=== PATIENT | female | born 1950 | race Caucasian/White ===

== ENCOUNTER 2022-03-31 11:28 | Inpatient (IN) | payer MEDICARE, OTHER ==
[~2022-03-31] VITALS: Ht 165.1 cm; Wt 95.3 kg
[2022-03-31] MEDS ORDERED: ACETAMINOPHEN 325 MG TABLET PO ONE ×2 (11:45→17:45)
[2022-03-31] MEDS ORDERED: IV NORMAL SALINE 1000 ML BAG IV ONE (11:45)
[2022-03-31] MEDS ORDERED: ACYCLOVIR 500 MG VIAL IV ONE (12:04)
[2022-03-31] MEDS ORDERED: ACETAMINOPHEN 325 MG TABLET ONE (12:05)
[2022-03-31 12:18] LABS: HEMATOCRIT 33.8 % (31.2-41.9); MEAN CORPUSCULAR HEMOGLOBIN 30.4 uug (24.7-32.8); MEAN CORPUSCULAR VOLUME 89.9 fL (75.5-95.3); PLATELET COUNT (AUTO) 109 K/uL (179-408)
--- NOTE | 2022-03-31 12:19 | NUR ---
Pt was taken by Giancarlo diane CT.
[2022-03-31] MEDS ORDERED: ANAS1TAB50 PO (12:20)
[2022-03-31] MEDS ORDERED: MAGN400T26 PO (12:20)
[2022-03-31] MEDS ORDERED: ATEN50TA PO (12:20)
[2022-03-31] MEDS ORDERED: ALBU1.25 IH (12:20)
[2022-03-31] MEDS ORDERED: ALPR0.5T8 PO (12:20)
[2022-03-31] MEDS ORDERED: LIDO5JEL9 TP (12:20)
[2022-03-31] MEDS ORDERED: CLOT15CR5 TP (12:20)
[2022-03-31] MEDS ORDERED: ALBU8HFA4 PO (12:20)
[2022-03-31] MEDS ORDERED: ASPI81TA31 PO (12:20)
[2022-03-31] MEDS ORDERED: LISI20TA30 PO (12:20)
[2022-03-31] MEDS ORDERED: CLON0.1T PO (12:20)
[2022-03-31] MEDS ORDERED: CA C1TAB71 PO (12:20)
[2022-03-31] MEDS ORDERED: ZOLP5TAB2 PO (12:20)
[2022-03-31] MEDS ORDERED: GABA-532 PO (12:20)
[2022-03-31] MEDS ORDERED: MECL-159 PO (12:20)
[2022-03-31] MEDS ORDERED: IBUP-1955 PO (12:20)
[2022-03-31] MEDS ORDERED: [UNRECOGNIZED DRUG - OTHER] PO (12:20)
[2022-03-31] MEDS ORDERED: AMLO5TAB4 PO (12:20)
[2022-03-31] MEDS ORDERED: CICLOPIROX TP (12:20)
[2022-03-31] MEDS ORDERED: ROSU40TA PO (12:20)
[2022-03-31 12:26] LABS: CARBON DIOXIDE 24 mmol/L (21-32); CHLORIDE 97 mmol/L (98-107); CREATININE 1.1 mg/dL (0.6-1.3); GLUCOSE 199 mg/dL (74-106); POTASSIUM 3.8 mmol/L (3.5-5.1); UREA NITROGEN, BLOOD 25 mg/dL (7-18)
[2022-03-31 12:35] LABS: ALANINE AMINOTRANSFERASE 17 U/L (14-59); ALKALINE PHOSPHATASE 58 U/L (50-136); ASPARTATE AMINOTRANSFERASE 16 U/L (15-37); BILIRUBIN,DIRECT 0.1 mg/dL (0.0-0.2); BILIRUBIN,TOTAL 0.6 mg/dL (0.2-1.0); TOTAL PROTEIN, SERUM 6.8 g/dL (6.4-8.2)
[2022-03-31 12:57] LABS: *BILIRUBIN,URIN 1+ (NEGATIVE); *KETONES,URINE 2+ (NEGATIVE); *UROBILINOGEN,URINE 0.2 E.U./dl (NORMAL); LEUKOCYTE ESTERASE ,URINE NEGATIVE (NEGATIVE); NITRITE, URINE NEGATIVE (NEGATIVE); PH,URINE 5.5 (5.0-8.0); UGLUCOSE NEGATIVE (NEGATIVE)
[2022-03-31 13:11] LABS: *BLOOD, URINE TRACE (NEGATIVE); *COLOR,URINE DARK YELLOW (YELLOW)
[2022-03-31 13:17] LABS: *CLARITY,URINE SLIGHTLY HAZY (CLEAR)
[2022-03-31 13:25] LABS: BACTERIA,URINE FEW /HPF (NONE SEEN); SQUAMOUS EPITHELIAL CELL,UR FEW /HPF (NONE SEEN); WBC,URINE 0-3 /HPF (0-3)
[2022-03-31] MEDS ORDERED: ACYCLOVIR IV 500 MG in IV DEXTROSE 5% 100 ML IV ONE (14:00)
--- NOTE | 2022-03-31 15:30 | NUR ---
Tried to call for report. CN on break. No assignment yet for new admits.
--- NOTE | 2022-03-31 17:37 | NUR ---
report given to REG Gaffney
[2022-03-31 18:40] VITALS: BP 108/80
--- NOTE | 2022-03-31 18:40 | NUR ---
RECEIVED FOR ADMISSION 72 YEARS FEMALE FROM ED BY JEMIMA TO ROOM 308 ASSISTED INTO BED FIXED AND MADE COMFORTABLE PATIENT IS ALERT AND VERBALLY RESPONSIVE ON ROOM AIR WITH NO SHORTNESS OF BREATH AT THIS TIME PATIENT PLACED ON CONTACT ISOLATION DUE TO SHINGLES ORIENTED TO ROOM AND FACILITY PROTOCOL FAMILY HERE AT THE BEDSIDE CALL LIGHT AND PERSONAL BELONGINGS ARE WITHIN EASY REACH WILL ENDORSE THE ADMISSION OF THIS PATIENT TO ONCOMING SHIFT.
[2022-03-31] MEDS ORDERED: ONDANSETRON 4 MG/2 ML VIAL IV PRN (19:00)
[2022-03-31] MEDS ORDERED: CLONIDINE HCL 0.1 MG TABLET PO PRN (19:00)
[2022-03-31] MEDS ORDERED: ALPRAZOLAM 0.5 MG TABLET PO PRN (19:00)
[2022-03-31] MEDS ORDERED: MAGNESIUM HYDROXIDE 30 ML LIQUID UDC PO PRN (19:00)
[2022-03-31] MEDS ORDERED: MORPHINE SULFATE 2 MG/1 ML DISP.SYRIN IV PRN (19:00)
[2022-03-31 20:00] VITALS: BP 146/83
[2022-03-31] MEDS ORDERED: ENOXAPARIN SODIUM 40 MG/0.4 ML DISP.SYRIN SQ SCH (20:00)
--- NOTE | 2022-03-31 20:00 | NUR ---
PHOTO TAKEN TO PATIENT BODY AREAS WITH MULTIPLE SKIN RASH ( REDNESS ).FACE,LEFT LOWER POSTERIOR THIGH ,LEFT LOWER BUTTOCKS AREA,CHEST AND ABDOMEN AREA ,RIGHT AND LEFT GROIN AND PERINEAL AREA . SEE PHOTO , WOUND CARE CONSULTED .
[2022-03-31] MEDS ORDERED: ZOLPIDEM 5 MG TABLET PO PRN (21:00)
[2022-03-31] MEDS ORDERED: METOPROLOL TARTRATE 25 MG TABLET PO SCH (21:00)
[2022-03-31] MEDS: CEFAZOLIN 2 G in IV DEXTROSE 5% 100 ML IV SCH (21:03)
[2022-03-31] MEDS: GABAPENTIN 100 MG CAPSULE PO SCH (21:04)
[2022-03-31] MEDS: ENOXAPARIN SODIUM 40 MG/0.4 ML DISP.SYRIN SQ SCH (21:06)
[2022-04-01] VITALS: BP 147/85
[2022-04-01 04:00] VITALS: BP 181/86
[2022-04-01] MEDS: CEFAZOLIN 2 G in IV DEXTROSE 5% 100 ML IV SCH ×3 (04:30→20:22)
[2022-04-01] MEDS: ACETAMINOPHEN 325 MG TABLET PO PRN ×2 (05:33→17:18)
--- NOTE | 2022-04-01 05:47 | NUR ---
given prn tyelnol for fever temp 103 .1 axillary and catapres for bp of 181/86. placed cold compress to bilateral armpit and groin area .
[2022-04-01] MEDS: PANTOPRAZOLE SODIUM 40 MG TABLET.DR PO SCH (06:17)
[2022-04-01 07:19] LABS: HEMATOCRIT 31.8 % (31.2-41.9); MEAN CORPUSCULAR HEMOGLOBIN 30.6 uug (24.7-32.8); MEAN CORPUSCULAR VOLUME 88.5 fL (75.5-95.3); PLATELET COUNT (AUTO) 111 K/uL (179-408)
[2022-04-01 07:32] LABS: THYROID STIMULATING HORMONE 0.139 mIU/mL (0.358-3.740)
[2022-04-01 07:38] LABS: BILIRUBIN,TOTAL 0.3 mg/dL (0.2-1.0); CREATININE 0.9 mg/dL (0.6-1.3); PHOSPHOROUS 2.1 mg/dL (2.5-4.9); POTASSIUM 3.5 mmol/L (3.5-5.1); TOTAL PROTEIN, SERUM 5.8 g/dL (6.4-8.2)
[2022-04-01 07:54] LABS: MAGNESIUM 1.8 mg/dL (1.8-2.4)
[2022-04-01] MEDS ORDERED: AMLODIPINE 5 MG TABLET PO SCH (09:00)
[2022-04-01] MEDS ORDERED: SWABABLE VALVE TRANSFER SET EA MC ONE (09:39)
[2022-04-01] MEDS ORDERED: IV NORMAL SALINE 0 ML IV ONE (09:39)
[2022-04-01] MEDS ORDERED: IOHEXOL 350 100 ML INFUS..BTL ONE (09:40)
[2022-04-01] MEDS: GABAPENTIN 100 MG CAPSULE PO SCH ×2 (09:44→20:35)
[2022-04-01] MEDS: ANASTROZOLE 1 MG TABLET PO SCH (09:44)
[2022-04-01] MEDS: ASPIRIN 81 MG TAB.CHEW PO SCH (09:44)
[2022-04-01] MEDS ORDERED: POTASSIUM CHLORIDE 20 MEQ TAB.PRT.SR PO ONE (10:00)
[2022-04-01] MEDS ORDERED: NEUTRA PHOS PACKET PO ONE ×2 (10:00→16:00)
--- NOTE | 2022-04-01 10:00 | NUR ---
Per Dr. Marshall, hold transfer to [place], for airborne precautions, until he assesses patient. Family is aware, partial airborne precautions followed as there is no negative pressure room in this unit.
[2022-04-01] MEDS: METOPROLOL TARTRATE 50 MG TABLET PO SCH ×2 (10:07→20:35)
[2022-04-01 11:44] VITALS: BP 136/55
[2022-04-01] MEDS ORDERED: LIDO700A30 TP (15:01)
[2022-04-01] MEDS ORDERED: OMEG1CAP74 PO (15:01)
[2022-04-01] MEDS: ACYCLOVIR IV 1,000 MG in IV DEXTROSE 5% 250 ML IV SCH ×2 (15:13→23:41)
[2022-04-01 15:46] VITALS: BP 159/63
--- NOTE | 2022-04-01 16:00 | NUR ---
Spoke to Dr. Marshall who confirms patient will need to be transferred to [facility] due to disseminated zoster which need airborne precautions. Family made aware and refuses to be transferred to [facility]. Questions answered to family and also referred to speak to MD for further questions. Family is requesting to be transferred to [facility] so that patient oncologisty, Dr. Clemente Martinez, can see her. Nursing evaporator supervisor and Doctor made aware. MD also aware of patient fatigue and temp of 103.0. Per MD he will call the family.
--- NOTE | 2022-04-01 18:50 | NUR ---
Dr. Cisneros spoke to family and Dr. Meg Mendoza in regards to needs for transfer and other questions. Nursing supervisor building maintenance working on transfer.
--- NOTE | 2022-04-01 19:30 | NUR ---
rounds made patient in bed resting .no s/s of pain . patient is verbal and able to answer yes or no to simple questions . contact and droplet isolation observed .
[2022-04-01 20:00] VITALS: BP 145/70
--- NOTE | 2022-04-01 20:35 | NUR ---
due po medication given with cranberry juice .patient requested extra blanket provided patient denies pain . no sob breathing even and unlabored .
[2022-04-01] MEDS: ENOXAPARIN SODIUM 40 MG/0.4 ML DISP.SYRIN SQ SCH (20:37)
--- NOTE | 2022-04-01 22:14 | NUR ---
found right ac heplock iv leaking discontinued placed new heplock to the left ac no .20 done aseptically . attempted x1.
[2022-04-02] MEDS: ACETAMINOPHEN 325 MG TABLET PO PRN ×2 (00:14→12:45)
[2022-04-02 00:29] VITALS: BP 132/53
[2022-04-02 04:30] VITALS: BP 108/58
[2022-04-02] MEDS: CEFAZOLIN 2 G in IV DEXTROSE 5% 100 ML IV SCH ×2 (04:31→12:35)
[2022-04-02] MEDS: PANTOPRAZOLE SODIUM 40 MG TABLET.DR PO SCH (06:15)
[2022-04-02] MEDS: ACYCLOVIR IV 1,000 MG in IV DEXTROSE 5% 250 ML IV SCH (06:15)
[2022-04-02 06:54] LABS: HEMATOCRIT 30.4 % (31.2-41.9); MEAN CORPUSCULAR HEMOGLOBIN 30.2 uug (24.7-32.8); MEAN CORPUSCULAR VOLUME 87.4 fL (75.5-95.3); PLATELET COUNT (AUTO) 131 K/uL (179-408)
--- NOTE | 2022-04-02 07:06 | NUR ---
WOUND CARE CONSULT: PT PRESENTS WITH LESIONS TO FACE, SHOULDERS, ABDOMEN AND MANY LESIONS WITH DISCOLORATION TO LEFT BUTTOCK, GLUTEAL CREASE AND THIGH, PRESENT ON ADMISSION. RECOMMEND SURGICAL CONSULT. DR SONIA AGUILERA TO BE CALLED FOR SURGICAL CONSULT REQUEST. RECOMMENDATIONS MADE FOR SKIN PROTECTION. DISCUSSED WITH NURSING STAFF. MD IN AGREEMENT WITH PLAN OF CARE.
[2022-04-02 07:15] LABS: BILIRUBIN,TOTAL 0.2 mg/dL (0.2-1.0); CREATININE 1.1 mg/dL (0.6-1.3); MAGNESIUM 1.8 mg/dL (1.8-2.4); PHOSPHOROUS 3.4 mg/dL (2.5-4.9); POTASSIUM 3.4 mmol/L (3.5-5.1); TOTAL PROTEIN, SERUM 5.3 g/dL (6.4-8.2)
[2022-04-02] MEDS ORDERED: REMEDY ESSENTIAL ZINC PASTE 113 GM TOP PRN (07:15)
[2022-04-02] MEDS ORDERED: ENALAPRILAT DIHYDRATE 1.25 MG/1 ML VIAL IV PRN (08:45)
[2022-04-02] MEDS ORDERED: REMEDY ESSENTIAL ZINC PASTE 113 GM TOP SCH (09:00)
[2022-04-02] MEDS ORDERED: POTASSIUM CHLORIDE 20 MEQ TAB.PRT.SR PO ONE (10:00)
[2022-04-02] MEDS: ASPIRIN 81 MG TAB.CHEW PO SCH (10:49)
[2022-04-02] MEDS: ANASTROZOLE 1 MG TABLET PO SCH (10:52)
[2022-04-02] MEDS: GABAPENTIN 100 MG CAPSULE PO SCH (10:56)
[2022-04-02 11:50] LABS: BAND % (MANUAL) 2 % (0-10); LYMPHOCYTES % (MANUAL) 65 % (20-40); MONOCYTES % (MANUAL) 7 % (2-10); NEUTROPHILS % (MANUAL) 26 % (42-75)
[2022-04-02 12:00] VITALS: BP 169/78
[2022-04-02] MEDS ORDERED: ACYCLOVIR SODIUM 1,000 MG in IV DEXTROSE 5% 250 ML IV SCH ×2 (12:40→15:00)
[2022-04-02] MEDS ORDERED: ACET325T53 PO (14:02)
[2022-04-02] MEDS ORDERED: ENOX40DI SQ (14:02)
[2022-04-02] MEDS ORDERED: ONDA4VIA23 IV (14:02)
[2022-04-02] MEDS ORDERED: ACYC1000 IV (14:02)
[2022-04-02] MEDS ORDERED: ZOLP5TAB2 PO (14:02)
[2022-04-02] MEDS ORDERED: MAGN400O6 PO (14:02)
[2022-04-02] MEDS ORDERED: GABA-532 PO (14:02)
[2022-04-02] MEDS ORDERED: PANT40TA49 PO (14:02)
[2022-04-02] MEDS ORDERED: ENAL1.2515 IV (14:02)
[2022-04-02] MEDS ORDERED: CEFA1VIA19 IV (14:02)
[2022-04-02] MEDS ORDERED: Morphine Sulfate Inj IV (14:02)
[2022-04-02 16:00] VITALS: BP 159/75
== END 2022-04-02 18:25 | disposition short-term general hospital (02) | DRG 871 ==
LOC: ER 11:28 → TELE3 17:56
PROVIDERS: ADMIT Internal Medicine; ATTEND Internal Medicine
DX: A41.9 Sepsis, unspecified organism (principal); G92.8 Other toxic encephalopathy; B02.7 Disseminated zoster; D68.59 Other primary thrombophilia; E87.1 Hypo-osmolality and hyponatremia; D64.9 Anemia, unspecified; E78.5 Hyperlipidemia, unspecified; E66.9 Obesity, unspecified; I10 Essential (primary) hypertension; G47.00 Insomnia, unspecified; J45.909 Unspecified asthma, uncomplicated; Z20.822 Contact with and (suspected) exposure to COVID-19; Z86.73 Personal history of transient ischemic attack (TIA), and cerebral infarction without residual deficits; Z79.82 Long term (current) use of aspirin; F41.9 Anxiety disorder, unspecified; E86.0 Dehydration; Z90.12 Acquired absence of left breast and nipple; Z90.710 Acquired absence of both cervix and uterus; R53.1 Weakness; Z74.09 Other reduced mobility; N61.0 Mastitis without abscess; Z68.34 Body mass index [BMI] 34.0-34.9, adult; C50.912 Malignant neoplasm of unspecified site of left female breast
CPT/HCPCS: 36415; 70030-TC; 70450; 71045; 83605; 83735; 84100; 84443; 84484; 85025; 85730; 86803; 86850; 86870; 86900; 86901; 87040; 87086; 87806; 93005; A4663; G0378; J0133; J0690; J1650; J7040; J7050; Q9967